=== PATIENT | female | born 1945 ===

== ENCOUNTER 2022-12-17 06:00 | Day surgery (SDC) | payer OTHER ==
[~2022-12-17] VITALS: Ht 154.9 cm; Wt 52.2 kg
[~2022-12-17 06:00] MED LIST: ACTOS30 MG PO; CALPHRON667 MG PO; D3 + K2 DOTS 11 EACH PO; NATEGLINIDE120 MG PO; XARELTO2.5 MG PO; ZIAC 5-6.25 MG1 EACH PO
[2022-12-17] MEDS ORDERED: TRAM1TAB98 PO (09:03)
[2022-12-17] MEDS ORDERED: INTESTINEX680 M1 PO (09:04)
== END 2022-12-17 13:35 | disposition home or self-care (01) ==
LOC: CIR.AMB 06:00
PROVIDERS: ATTEND Surgery
DX: K62.1 Rectal polyp (principal); K64.3 Fourth degree hemorrhoids; K62.5 Hemorrhage of anus and rectum; I10 Essential (primary) hypertension; Z20.822 Contact with and (suspected) exposure to COVID-19